=== PATIENT | male | born 1970 | race Caucasian/White ===

== ENCOUNTER 2016-08-28 08:00 | Day surgery (SDC) | payer OTHER ==
[2016-08-15 15:45] VITALS: BMI 32.6
[2016-08-28] MEDS ORDERED: MIDAZOLAM HCL 2 MG/2 ML SINGLE DOSE VIAL ONE (09:50)
[2016-08-28] MEDS ORDERED: LIDOCAINE HCL 2% (50ML VIAL) INF ONE (10:20)
[2016-08-28] MEDS ORDERED: oxyCODONE HCL 5 MG TABLET PO PRN (11:13)
[2016-08-28 11:32] VITALS: TEMP 97.5
[2016-08-28] MEDS ORDERED: ONDANSETRON 4 MG/2 ML VIAL IVPUSH PRN (11:34)
[2016-08-28] MEDS ORDERED: LACTATED RINGERS SOLUTION 1,000 ML IV SCH (11:45)
[2016-08-28 12:09] VITALS: BP 116/64; PULSE 62
--- NOTE | 2016-08-29 09:29 | OP ---
DATE OF OPERATION: 08/28/2016 PREOPERATIVE DIAGNOSIS: Right carpal tunnel syndrome. POSTOPERATIVE DIAGNOSIS: Right carpal tunnel syndrome. OPERATIVE PROCEDURE: Right carpal tunnel release. SURGEON: Douglas Hassan MD ANESTHESIA: Local with sedation. COMPLICATIONS: None. ESTIMATED BLOOD LOSS: Minimal. INDICATIONS FOR PROCEDURE: The patient is a 46-year-old male with the above findings, indicated for operative treatment. The risks, benefits, and alternatives were discussed with the patient at length, and proper informed consent was obtained. PROCEDURE: After proper identification of the patient and the correct operative site, the patient was brought to the operating room and placed on the table with all prominences well padded. Sedation was given by the anesthesiologist, local anesthesia was given with 2% lidocaine. Right upper extremity was prepped and draped in the usual sterile fashion. Well-padded tourniquet was placed with a sterile prep. Esmarch bandage used to exsanguinate the right upper extremity. Tourniquet inflated to 250 mmHg. A longitudinal incision was made over the proximal aspect of the palm. Incision was taken sharply through the skin with blunt and sharp dissection through subcutaneous tissues. Palmar fascia was divided longitudinally. The transverse carpal ligament was divided longitudinally along with the distal 4 cm of antebrachial fascia under direct visualization with loupe magnification. This provided complete release of the median nerve at the wrist. Wound was irrigated with copious amounts of normal saline and repaired with 5-0 nylon suture. Sterile dressings were applied. The patient was reversed from sedation, brought to the recovery room in stable condition. He tolerated the procedure well. Stephan [id number]
== END 2016-08-28 12:11 | disposition home or self-care (01) ==
LOC: FASU 08:00
PROVIDERS: ATTEND Orthopaedic Surgery Hand Surgery
PROC: 01N50ZZ Release Median Nerve, Open Approach (ICD-10-PCS; principal; 2016-08-28 10:00)
DX: G56.01 Carpal tunnel syndrome, right upper limb (principal)
CPT/HCPCS: 94760